=== PATIENT | male | born 1950 | race Caucasian/White ===

== ENCOUNTER 2018-07-11 23:30 | Inpatient (IN) | payer MEDICARE, OTHER ==
[~2018-07-11] VITALS: Ht 177.8 cm; Wt 77.3 kg
[2018-07-11] MEDS ORDERED: ACETAMINOPHEN 325 MG TABLET ONE (23:53)
[2018-07-12] MEDS ORDERED: SODIUM CHLORIDE FLUSH 10ML SYR IVF ONE
[2018-07-12] MEDS ORDERED: ACETAMINOPHEN 325 MG TABLET PO ONE
[2018-07-12 00:18] LABS: BASOPHILS # (AUTO) 0.02 x10^3/uL (0-0.1); BASOPHILS % (AUTO) 0 % (0-1); EOSINOPHILS # (AUTO) 0.01 x10^3/uL (0-0.4); EOSINOPHILS % (AUTO) 0 % (1-7); LYMPHOCYTES # (AUTO) 1.16 x10^3/uL (1-3.4); LYMPHOCYTES % (AUTO) 14 % (22-44); MD NO; MEAN CORPUSCULAR HEMOGLOBIN 31.3 pg (27.5-34.5); MEAN CORPUSCULAR HGB CONC 34.3 g/dL (33.2-36.2); MEAN CORPUSCULAR VOLUME 91.1 fL (81-97); MEAN PLATELET VOLUME 6.9 fL (7.4-10.4); MONOCYTES # (AUTO) 0.55 x10^3/uL (0.2-0.8); MONOCYTES % (AUTO) 7 % (2-9); NEUTROPHILS % (AUTO) 79 % (42-75); PLATELET COUNT 217 x10^3/uL (130-400); RED BLOOD COUNT 4.46 x10^6/uL (4.38-5.82); RED CELL DISTRIBUTION WIDTH 12.7 % (9.4-14.8)
[2018-07-12 00:25] LABS: INTERNATIONAL NORMALIZED RATIO 1.04 (0.93-1.1)
[2018-07-12 00:28] LABS: ALBUMIN 3.4 g/dL (3.4-5.0); ANION GAP 10 mmol/L (5-15); CALCIUM 8.4 mg/dL (8.5-10.1); CHLORIDE 102 mmol/L (98-107)
[2018-07-12] MEDS ORDERED: SODIUM CHLORIDE FLUSH 10ML SYR IVF PRN (00:30)
[2018-07-12 00:31] LABS: ALANINE AMINOTRANSFERASE 32 U/L (12-78); ALKALINE PHOSPHATASE 72 U/L (45-117); BILIRUBIN,TOTAL 0.8 mg/dL (0.2-1.0); CREATININE 1.86 mg/dL (0.7-1.3); TOTAL PROTEIN 7.7 g/dL (6.4-8.2)
--- NOTE | 2018-07-12 01:16 | NUR ---
REPORT GIVEN TO LEONEL, RN
[2018-07-12] MEDS: HEPARIN 5,000 UNITS/ML, 1ML SQ SCH ×3 (01:30→17:30)
[2018-07-12] MEDS ORDERED: ONDANSETRON 2MG/ML, 2ML IVPush PRN (01:30)
[2018-07-12] MEDS ORDERED: GUAIFENESIN/DM 200-20MG, 10ML UDC PO PRN (01:30)
[2018-07-12] MEDS ORDERED: GUAIFENESIN/COD200MG-20MG/10ML LIQUID PO PRN ×2 (01:30→11:00)
[2018-07-12 01:49] VITALS: BP 124/56
[2018-07-12] MEDS: ZOLPIDEM 5MG TABLET PO PRN ×2 (02:22→21:48)
[2018-07-12] MEDS: LACTATED RINGERS 1,000 ML IV SCH ×2 (02:24→15:17)
[2018-07-12 07:32] VITALS: BP 115/70
[2018-07-12] MEDS: ACETAMINOPHEN 325 MG TABLET PO PRN (10:41)
[2018-07-12] MEDS: GUAIFENESIN 200 MG TABLET PO SCH ×3 (11:00→21:48)
[2018-07-12] MEDS: LACTOBACILLUS CHEW TABLET PO SCH ×3 (11:58→21:48)
[2018-07-12 14:26] VITALS: BP 127/62
[2018-07-12 16:35] LABS: ANION GAP 7 mmol/L (5-15); CALCIUM 9.1 mg/dL (8.5-10.1); CHLORIDE 101 mmol/L (98-107); CREATININE 1.32 mg/dL (0.7-1.3)
[2018-07-12 16:50] LABS: MICROSCOPIC NOT IND
[2018-07-12 16:58] LABS: CULTURE INDICATED? NO
[2018-07-12 20:16] VITALS: BP 158/74
[2018-07-13] MEDS: HEPARIN 5,000 UNITS/ML, 1ML SQ SCH ×2 (01:30→09:21)
[2018-07-13 03:45] VITALS: BP 133/67
[2018-07-13] MEDS: LACTATED RINGERS 1,000 ML IV SCH (03:59)
[2018-07-13 05:13] LABS: BASOPHILS # (AUTO) 0.03 x10^3/uL (0-0.1); BASOPHILS % (AUTO) 1 % (0-1); EOSINOPHILS # (AUTO) 0.17 x10^3/uL (0-0.4); EOSINOPHILS % (AUTO) 4 % (1-7); LYMPHOCYTES # (AUTO) 1.33 x10^3/uL (1-3.4); LYMPHOCYTES % (AUTO) 29 % (22-44); MD NO; MEAN CORPUSCULAR HEMOGLOBIN 31.2 pg (27.5-34.5); MEAN CORPUSCULAR HGB CONC 34.2 g/dL (33.2-36.2); MEAN CORPUSCULAR VOLUME 91.1 fL (81-97); MEAN PLATELET VOLUME 6.4 fL (7.4-10.4); MONOCYTES # (AUTO) 0.43 x10^3/uL (0.2-0.8); MONOCYTES % (AUTO) 9 % (2-9); NEUTROPHILS # (AUTO) 2.61 x10^3/uL (1.8-6.8); NEUTROPHILS % (AUTO) 57 % (42-75); PLATELET COUNT 197 x10^3/uL (130-400); RED BLOOD COUNT 3.97 x10^6/uL (4.38-5.82); RED CELL DISTRIBUTION WIDTH 12.9 % (9.4-14.8)
[2018-07-13 05:26] LABS: CALCIUM 8.3 mg/dL (8.5-10.1); CHLORIDE 102 mmol/L (98-107)
[2018-07-13 05:29] LABS: ANION GAP 8 mmol/L (5-15); CREATININE 1.03 mg/dL (0.7-1.3)
[2018-07-13] MEDS: GUAIFENESIN 200 MG TABLET PO SCH ×2 (05:55→11:44)
[2018-07-13] MEDS: LACTOBACILLUS CHEW TABLET PO SCH ×2 (05:55→11:44)
[2018-07-13 07:45] VITALS: BP 153/67
[2018-07-13] MEDS: ACETAMINOPHEN 325 MG TABLET PO PRN ×2 (09:21→14:27)
[2018-07-13] MEDS ORDERED: CARV12.52 PO (10:24)
[2018-07-13] MEDS ORDERED: ASPI81TA45 PO (10:24)
[2018-07-13] MEDS ORDERED: KETO120S2 TP (10:24)
[2018-07-13] MEDS ORDERED: RANI150T4 PO (10:24)
[2018-07-13] MEDS ORDERED: LEVO750T6 PO (10:24)
[2018-07-13] MEDS ORDERED: FURO20TA3 PO (10:24)
[2018-07-13] MEDS ORDERED: BUDE10.2 PO (10:24)
[2018-07-13] MEDS ORDERED: ATOR20TA86 PO (10:24)
[2018-07-13] MEDS ORDERED: FLUO15CR2 TP (10:24)
[2018-07-13] MEDS ORDERED: MINE120C TP (10:24)
[2018-07-13] MEDS ORDERED: LISI-170 PO (10:24)
[2018-07-13] MEDS ORDERED: DEXT15DR6 OP (10:24)
[2018-07-13] MEDS ORDERED: POTA20PA31 PO (10:24)
[2018-07-13] MEDS ORDERED: TEMPLATE NON-FORMULARY MED. (Budesonide/Formoterol Fumarate (Symbicort 160-4.5 Mcg Inhaler PO SCH (11:00)
[2018-07-13] MEDS ORDERED: ATORVASTATIN 20 MG TABLET PO SCH (11:00)
[2018-07-13] MEDS ORDERED: LISINOPRIL 20 MG TABLET PO SCH (11:00)
[2018-07-13] MEDS ORDERED: PLEASE ENTER ALLERGIES MC SCH (11:30)
[2018-07-13 11:53] VITALS: BP 150/60
[2018-07-13 11:57] VITALS: BP 152/70
[2018-07-13 12:03] VITALS: BP 161/70
[2018-07-13] MEDS ORDERED: GUAI200T3 PO (13:03)
[2018-07-13] MEDS ORDERED: ACID1TAB7 PO (13:03)
[2018-07-13] MEDS ORDERED: CARVEDILOL 12.5 MG TABLET PO SCH (18:00)
[2018-07-13] MEDS ORDERED: FAMOTIDINE 20 MG TABLET PO SCH (21:00)
[2018-07-14] MEDS ORDERED: ASPIRIN 81 MG TABLET EC PO SCH (09:00)
== END 2018-07-13 15:15 | disposition home or self-care (01) | DRG 683 ==
LOC: ED 23:59 → EDIP 07-12 00:25 → 4NOR 07-12 01:34 → DCLOUNGE 07-13 14:39
PROVIDERS: ADMIT Internal Medicine; ATTEND Internal Medicine
DX: N17.0 Acute kidney failure with tubular necrosis (principal); E87.1 Hypo-osmolality and hyponatremia; I50.22 Chronic systolic (congestive) heart failure; E86.1 Hypovolemia; E86.0 Dehydration; E78.00 Pure hypercholesterolemia, unspecified; I11.0 Hypertensive heart disease with heart failure; I25.10 Atherosclerotic heart disease of native coronary artery without angina pectoris; I73.9 Peripheral vascular disease, unspecified; J44.9 Chronic obstructive pulmonary disease, unspecified; K52.9 Noninfective gastroenteritis and colitis, unspecified; Z85.828 Personal history of other malignant neoplasm of skin; Z87.891 Personal history of nicotine dependence
CPT/HCPCS: 36415; 80048; 80053; 81003; 83605; 83690; 85025; 85610; 85730; 93005; 99285; G0378; J7120

== ENCOUNTER → 2020-06-04 | Outpatient (CLI) | payer OTHER ==
[~2020-06-04] MED LIST: ACID1TAB7 PO; ASPI81TA45 PO; ATOR20TA86 PO; BUDE10.2 PO; CARV12.52 PO; DEXT15DR6 OP; FLUO15CR2 TP; FURO20TA3 PO; GUAI200T37 PO; KETO120S4 TP; LEVO750T6 PO; LISI-170 PO; MINE120C TP; POTA20PA31 PO; RANI150T4 PO
== END | disposition home or self-care (01) ==
LOC: CVU 13:34
PROVIDERS: ATTEND Orthopaedic Surgery
DX: I08.8 Other rheumatic multiple valve diseases (principal); I25.9 Chronic ischemic heart disease, unspecified; R06.02 Shortness of breath; I11.9 Hypertensive heart disease without heart failure; Z87.891 Personal history of nicotine dependence
CPT/HCPCS: 71046; 93306